=== PATIENT | female | born 1970 | race American Indian/Alaskan Native ===

== ENCOUNTER 2018-05-02 05:56 | Inpatient (IN) | payer MEDICAID, OTHER ==
[~2018-05-02 05:56] MED LIST: Lactated Ringers 1,000 ML IV SCH; Oxytocin/Normal Saline 30 UNIT/500 ML BAG IV SCH; Sodium Chloride 0.9% 10 ML Syringe FLUSH PRN
[2018-05-02] MEDS: Lactated Ringers 1,000 ML IV SCH ×4 (06:20→21:44)
[2018-05-02] MEDS ORDERED: Oxytocin/Normal Saline 60 UNIT/1,000 ML BAG ONE (07:15)
[2018-05-02] MEDS ORDERED: Citric Acid/Sodium Citrate Solution 30 ML Cup PO ONE (07:30)
[2018-05-02] MEDS ORDERED: Carboprost Tromethamine 250 MCG/1 ML Amp IM PRN (08:00)
[2018-05-02] MEDS ORDERED: Misoprostol 400 MCG (4 X 100 MCG TAB) ONE (08:00)
[2018-05-02] MEDS ORDERED: Methylergonovine 0.2 MG/1 ML Amp ONE (08:00)
[2018-05-02] MEDS ORDERED: Carboprost Tromethamine 250 MCG/1 ML Amp ONE (08:00)
[2018-05-02] MEDS ORDERED: Tranexamic Acid 1,000 MG in Sodium Chloride 0.9% 100 ML IV PRN (08:00)
[2018-05-02] MEDS: ceFAZolin 2 GM in Premix Bag 1 BAG IV ONE ×2 (08:00→21:17)
[2018-05-02] MEDS ORDERED: Acetaminophen 325 MG Tab PO PRN (09:04)
[2018-05-02] MEDS ORDERED: Naloxone 2 MG/2 ML Syringe IVPUSH PRN (09:04)
[2018-05-02] MEDS ORDERED: Zolpidem 5 MG Tab PO PRN (09:04)
[2018-05-02] MEDS ORDERED: Acetaminophen/oxyCODONE 325-5 MG Tab PO PRN (09:04)
[2018-05-02] MEDS ORDERED: diphenhydrAMINE 50 MG/ML SDV IVPUSH PRN (09:04)
[2018-05-02] MEDS ORDERED: ePHEDrine 50 MG/ML SDV IVPUSH PRN (09:04)
[2018-05-02] MEDS ORDERED: Morphine PF 30 MG/30 ML PCA Vial IV SCH (09:45)
[2018-05-02] MEDS: Simethicone 80 MG Tab.Chew PO SCH ×3 (14:22→21:45)
[2018-05-02] MEDS: Ondansetron 4 MG/2 ML SDV IV PRN ×2 (14:22→20:53)
[2018-05-02] MEDS: ceFAZolin 1 GM in Premix Bag 1 BAG IV SCH ×2 (14:25→21:45)
[2018-05-02] MEDS: Ketorolac 30 MG/ML SDV IVPUSH SCH ×2 (15:26→20:55)
--- NOTE | 2018-05-02 15:51 | OR ---
DATE: 05/02/2018 PREOPERATIVE DIAGNOSES: A 48-year-old , 8, para 7, at 39 and 1/7 weeks' gestation, elective repeat low-transverse section. Advanced maternal age. A positive blood type. Group B streptococcus positive. Rubella immune. High-risk . Anemia. Single umbilical artery. Smoker. History of macrosomia, shoulder dystocia, and hemorrhage requiring transfusion. POSTOPERATIVE DIAGNOSES: A 48-year-old , 8, now para 8, at 39-1/7 weeks' gestation, elective repeat low-transverse section. Advanced maternal age. A positive blood type. Group B streptococcus positive. Rubella immune. High-risk . Anemia. Single umbilical artery. Smoker. History of macrosomia, shoulder dystocia, and hemorrhage requiring transfusion. Viable male infant, weighing 7 pounds 8 ounces/3400 g with scores of 3 and 8. Confirmed single umbilical artery with succenturiate/bilobed placenta, sent to pathology. Unresponsive to spinal anesthesia x2, requiring general anesthesia. ASSISTANTS: 1. Jaime Hernandez MD. 2. Gillian Rose MS-2. PROCEDURE: Elective repeat low-transverse section with Pfannenstiel incision. ANESTHESIA: Spinal attempt x2 with subsequent general. ESTIMATED BLOOD LOSS: 500 mL. URINE OUTPUT: 200 mL without hematuria. FINDINGS: Viki is a delightful 48-year-old female, 8, para 7, who presented at 39 and 1/7 weeks' gestation for elective repeat section as scheduled. NST on arrival was reactive. Hemoglobin was 10.1. Platelet count was 300+. We proceeded to surgery as planned. She had no further questions and we had completed her consent and preop 2 days ago in the clinic. Please see her preop notes and episode for further details. The patient underwent a spinal anesthesia attempt x2, however, was still able to feel pinch testing after being prepped and draped in the usual sterile manner. A time-out had been performed. She underwent general anesthesia. A Pfannenstiel incision was made through her old incision as marked with a purple surgical marker. Carried this down to the subcutaneous tissue to the fascia which was divided transversely with the Metzenbaum scissors. The superior and inferior fascial flaps were developed with sharp and blunt dissection. The rectus was identified and divided in the midline. The peritoneum was identified and entered bluntly. Incision was opened until we had excellent visualization of the lower uterine segment. Extra large Alireza retractor was placed without difficulty. A stab incision was made into the lower uterine segment and extended bilaterally with blunt dissection. Amniotic fluid returned and was noted to be clear. The vertex was elevated up into the incision and delivered, followed by the remainder of the baby without difficulty. A large amount of amniotic fluid was noted in the baby's mouth and nares and this was suctioned out by me while Dr. Hernandez doubly clamped and cut the cord. The baby was carried off to the awaiting Nursery staff and was noted to have a strong cry with drying and suctioning on the table. However, once he arrived at the nursery table, did have the score of 3 at one minute and did require some positive pressure ventilation. His score at 5 minutes was noted to be 8. Weight was later found to be 7 pounds 8 ounces/3400 g. I did obtain a cord blood sample. The placenta was removed and later inspected and found to be essentially bilobed with an almost succenturiate lobe. It did appear to have a single umbilical artery and the placenta and cord were sent to Pathology for further evaluation and inspection. The uterus was wiped clean and dry and then incision edges were grasped with Wilson forceps. Uterine incision was closed with running locking #1 Vicryl with excellent results and hemostasis. Gutters were examined and found to be clean and dry and all clots had been removed. The incision was again examined and appeared hemostatic. The retractor was removed. The perineum was closed with a running Vicryl stitch. The subfascial space was irrigated. Then the fascia was closed with a running PDS loop suture with excellent results. The subcutaneous space was then irrigated. All bleeders were electrocauterized. The skin edges were brought together with john. Uterus was firm. The patient was receiving Pitocin per protocol. Her estimated blood loss was 500 mL and her catheter continued to drain clear urine throughout as noted. There were no intraoperative complications and she was awakened and transferred to recovery in good condition. We will follow routine postop and orders and cares for her with further management pending her clinical course and personal desires. [facility] /[id number]
[2018-05-02] MEDS ORDERED: Lactated Ringers 1,000 ML IV ONE (16:46)
[2018-05-02] MEDS ORDERED: Propofol 200 MG/20 ML SDV IV ONE (16:46)
[2018-05-02] MEDS ORDERED: Ketorolac 30 MG/ML SDV IVPUSH ONE (16:46)
[2018-05-02] MEDS ORDERED: fentaNYL 100 MCG/2 ML SDV ONE (16:46)
[2018-05-02] MEDS ORDERED: Oxytocin/Normal Saline 30 UNIT/500 ML BAG IV ONE (16:55)
[2018-05-02] MEDS: Docusate Sodium 100 MG Cap PO PRN (21:44)
[2018-05-03] MEDS: Ketorolac 30 MG/ML SDV IVPUSH SCH (03:10)
[2018-05-03] MEDS: Lactated Ringers 1,000 ML IV SCH (03:21)
[2018-05-03] MEDS: ceFAZolin 1 GM in Premix Bag 1 BAG IV SCH (06:20)
[2018-05-03] MEDS: Acetaminophen/oxyCODONE 325-5 MG Tab PO PRN ×4 (08:04→21:24)
[2018-05-03] MEDS: Docusate Sodium 100 MG Cap PO PRN ×2 (08:04→20:34)
[2018-05-03] MEDS: Simethicone 80 MG Tab.Chew PO SCH ×4 (08:04→20:33)
--- NOTE | 2018-05-03 12:06 | PCM.SN ---
- Free Text/Narrative Note: DOS: 05-03-18 Post-op #1 s/p ERLTCS Feels well. eating without nausea or vomiting anesthesia resolved Afebrile, VSS exam unremarkable. flow very light. not passing flatus yet Hgb 8.1, PLT WNL will get last dose of Ancef today, then january D/C IV encouraged to ambulate continue current cares and orders. all questiosn answered. likely home tomorrow or the next day, pending her clinical course and baby's clinical course in [facility] NICU. jie
[2018-05-03] MEDS: Ibuprofen 800 MG Tab PO PRN ×2 (12:07→20:34)
[2018-05-04] MEDS: Acetaminophen/oxyCODONE 325-5 MG Tab PO PRN ×6 (01:35→23:03)
[2018-05-04] MEDS: Ibuprofen 800 MG Tab PO PRN ×3 (04:14→21:16)
[2018-05-04] MEDS: Simethicone 80 MG Tab.Chew PO SCH ×4 (09:35→21:15)
[2018-05-04] MEDS: Docusate Sodium 100 MG Cap PO PRN ×2 (09:38→23:03)
--- NOTE | 2018-05-04 19:14 | PCM.SN ---
- Free Text/Narrative Note: DOS: 05-04-18 POD #2 Viki is feeling well today. eating OK, no nausea or vomiting. passing flatus, no BM yet. voiding ok. flow decreasing. cramps controlled. feels ready to be discharged in the morning. baby doing well in [facility] VSS afeb. HEENT neg no resp distress HR regular abd soft legs without significant edema. Impression: POD #2 recovering well Plan: Plan for Discharge tomorrow morning. CBC ordered for a.m. Pepcid ordered for heartburn. Iron supplementation ordered now that bowel function returning follow up in clinic for john out next Monday with me all questions answered. hmb
[2018-05-04] MEDS: Famotidine 20 MG Tab PO SCH (21:15)
--- NOTE | 2018-05-05 03:02 | PCM.PNPP ---
- General Info Date of Service: 05/05/18 (POD/PPD # 3 S/P Repeat LTC/S) Functional Status: Reports: Pain Controlled - Review of Systems General: Reports: No Symptoms HEENT: Reports: No Symptoms Pulmonary: Reports: No Symptoms Cardiovascular: Reports: No Symptoms Gastrointestinal: Reports: No Symptoms Genitourinary: Reports: No Symptoms Musculoskeletal: Reports: No Symptoms Skin: Reports: No Symptoms Neurological: Reports: No Symptoms Psychiatric: Reports: No Symptoms - General Info Date of Service: 05/05/18 (PPD/POD # 2 S/P Repeat LTC/S) - Patient Data Vital Signs - Most Recent: Last Vital Signs Temp 97.8 F 05/04/18 20:00 Pulse 91 05/04/18 20:00 Resp 16 05/04/18 20:00 BP 123/73 05/04/18 20:00 Pulse Ox 95 05/04/18 12:52 Weight - Most Recent: 225 lb I&O - Last 24 Hours: Intake & Output 05/04/18 05/04/18 05/05/18 14:59 22:59 06:59 Intake Total 340 Balance 340 Med Orders - Current: Current Medications Acetaminophen (Tylenol) 650 mg PO Q6H PRN PRN Reason: mild pain or fever Carboprost Tromethamine (Hemabate Ds) 250 mcg IM ASDIRECTED PRN PRN Reason: Excessive vaginal bleeding Diphenhydramine HCl (Benadryl) 25 mg IVPUSH Q6H PRN PRN Reason: Itching or Nausea Docusate Sodium (Colace) 100 mg PO Q12H PRN PRN Reason: Constipation Last Admin: 05/04/18 23:03 Dose: 100 mg Ephedrine Sulfate (Ephedrine Sulfate) 5 mg IVPUSH SEECOMMENT PRN PRN Reason: Other Famotidine (Pepcid) 20 mg PO BID MARCELINA Last Admin: 05/04/18 21:15 Dose: 20 mg Ferrous Sulfate (Ferrous Sulfate) 325 mg PO BIDMEALS MARCELINA Lactated Ringer's (Ringers, Lactated) 1,000 mls @ 125 mls/hr IV ASDIRECTED MARCELINA Last Admin: 05/03/18 03:21 Dose: 125 mls/hr Lactated Ringer's (Ringers, Lactated) 1,000 mls @ 500 mls/hr IV .BOLUS MARCELINA Last Admin: 05/02/18 19:00 Dose: 500 mls/hr Tranexamic Acid 1,000 mg/ (Sodium Chloride) 110 mls @ 660 mls/hr IV ONETIME PRN PRN Reason: Bleeding Oxytocin/Sodium Chloride (Pitocin In Ns 30 Unit/500 Ml) 30 unit in 500 mls @ 2 mls/hr IV TITRATE [facility]; Protocol Last Admin: 05/02/18 09:14 Dose: 2 munits/min, 125 mls/hr Ibuprofen (Motrin) 800 mg PO Q8H PRN PRN Reason: mild pain or fever Last Admin: 05/04/18 21:16 Dose: 800 mg Morphine Sulfate (Morphine [employer] 30 Mg In 30 Ml) 30 mg IV SEECOMMENT [facility]; Protocol Last Admin: 05/02/18 11:57 Dose: 30 mg Naloxone HCl (Narcan) 0.1 mg IVPUSH SEECOMMENT PRN PRN Reason: Respiratory Depression Ondansetron HCl (Zofran) 4 mg IV Q4H PRN PRN Reason: Nausea/Vomiting Last Admin: 05/02/18 20:53 Dose: 4 mg Oxycodone/Acetaminophen (Percocet 325-5 Mg) 1 tab PO Q4H PRN PRN Reason: Pain (moderate 4-6) Oxycodone/Acetaminophen (Percocet 325-5 Mg) 2 tab PO Q4H PRN PRN Reason: Pain (moderate 4-6) Last Admin: 05/04/18 23:03 Dose: 2 tab Simethicone (Simethicone) 160 mg PO QID [facility] Last Admin: 05/04/18 21:15 Dose: 160 mg Sodium Chloride (Saline Flush) 10 ml FLUSH ASDIRECTED PRN PRN Reason: Keep Vein Open Last Admin: 05/03/18 03:11 Dose: 10 ml Zolpidem Tartrate (Ambien) 5 mg PO BEDTIME PRN PRN Reason: Insomnia Discontinued Medications Carboprost Tromethamine (Hemabate Ds) Confirm Administered Dose 250 mcg .ROUTE .STK-MED ONE Stop: 05/02/18 08:01 Last Admin: 05/02/18 21:17 Dose: Not Given Citric Acid/Sodium Citrate (Bicitra Solution) 30 ml PO ONETIME ONE Stop: 05/02/18 07:31 Last Admin: 05/02/18 07:47 Dose: 30 ml Fentanyl (Sublimaze) 20 mcg .XX .STK-MED ONE Stop: 05/02/18 16:47 Cefazolin Sodium/Dextrose 2 gm (/ Premix) 50 mls @ 100 mls/hr IV ONETIME ONE Stop: 05/02/18 07:59 Last Admin: 05/02/18 21:17 Dose: Not Given Oxytocin/Sodium Chloride (Pitocin In Ns 30 Unit/500 Ml) Confirm Administered Dose 60 unit in 1,000 mls @ as directed .ROUTE .STK-MED ONE Stop: 05/02/18 07:16 Cefazolin Sodium/Dextrose 1 gm (/ Premix) 50 mls @ 100 mls/hr IV Q8HR MARCELINA Stop: 05/03/18 06:29 Last Admin: 05/03/18 06:20 Dose: 100 mls/hr Lactated Ringer's (Ringers, Lactated) 1,000 mls @ as directed IV .STK-MED ONE Stop: 05/02/18 16:47 Oxytocin/Sodium Chloride (Pitocin In Ns 30 Unit/500 Ml) 30 unit in 500 mls @ as directed IV .STK-MED ONE Stop: 05/02/18 16:56 Ketorolac Tromethamine (Toradol) 15 mg IVPUSH Q6H MARCELINA Stop: 05/03/18 03:01 Last Admin: 05/03/18 03:10 Dose: 15 mg Ketorolac Tromethamine (Toradol) 30 mg IVPUSH .STK-MED ONE Stop: 05/02/18 16:47 Lidocaine HCl (Xylocaine-Mpf 1%) 3 ml INJECT .STK-MED ONE Stop: 05/02/18 16:47 Methylergonovine Maleate (Methergine) Confirm Administered Dose 0.2 mg .ROUTE .STK-MED ONE Stop: 05/02/18 08:01 Last Admin: 05/02/18 21:17 Dose: Not Given Misoprostol (Cytotec) Confirm Administered Dose 800 mcg .ROUTE .STK-MED ONE Stop: 05/02/18 08:01 Last Admin: 05/02/18 21:17 Dose: Not Given Propofol (Diprivan 20 Ml) 630 mg IV .STK-MED ONE Stop: 05/02/18 16:47 - Interaction Support Person: - Recovery Exam Fundal Tone: Firm Fundal Level: 3 Fingerbreadths Below Umbilicus Fundal Placement: Midline Lochia Amount: Small Lochia Color: Rubra/Red Perineum Description: Intact, Minimal Bruising/Swelling Episiotomy/Laceration: None Bladder Status: Nonpalpable, Voiding Urinary Elimination: Indwelling Catheter - Exam General: Alert, Oriented, Cooperative, No Acute Distress HEENT: Pupils Equal, Pupils Reactive, Mucous Membr. Moist/[place] Neck: Supple Lungs: Clear to Auscultation, Normal Respiratory Effort Cardiovascular: Regular Rate, Regular Rhythm, No Murmurs GI/Abdominal Exam: Normal Bowel Sounds, Soft, Non-Tender, No Organomegaly, No Distention Extremities: Normal Inspection, Normal Range of Motion, Non-Tender, No Pedal Edema Skin: Warm, Dry, Intact Wound/Incisions: Healing Well, Dressing Dry and Intact, No Drainage Neurological: No New Focal Deficit Psy/Mental Status: Alert, Normal Affect, Normal Mood - Problem List Review Problem List Initiated/Reviewed/Updated: Yes - My Orders Last 24 Hours: My Active Orders 05/05/18 02:53 Ready for Discharge [RC] PER UNIT ROUTINE - Assessment Assessment:: PPD/POD # 3 S/P Repeat LTC/S Advanced maternal age Group B strep positive 2 Vessel umbilical cord Chronic anemia of Acute anemia secondary to blood loss - Plan Plan:: Discharge to home Follow-up with Dr. Bowman on 05/09/2018 for staple removal and wound check. Percocet and Motrin for pain control All questions answered.
[2018-05-05] MEDS: Acetaminophen/oxyCODONE 325-5 MG Tab PO PRN ×2 (03:37→08:26)
[2018-05-05] MEDS ORDERED: Ferrous Sulfate 325 MG Tab PO SCH (08:00)
[2018-05-05] MEDS: Famotidine 20 MG Tab PO SCH (08:25)
[2018-05-05] MEDS: Docusate Sodium 100 MG Cap PO PRN (08:25)
[2018-05-05] MEDS: Ibuprofen 800 MG Tab PO PRN (08:25)
[2018-05-05] MEDS: Simethicone 80 MG Tab.Chew PO SCH (08:26)
[2018-05-05] MEDS ORDERED: HYDROmorphone/Normal Saline 15 MG/30 ML PCA IV SCH (10:45)
--- NOTE | 2018-05-06 03:00 | DISCH ---
INDICATION FOR ADMISSION: Ms. Mejía is a 48-year-old 8, para 7-0-0-7, female at 39 and 1/7 weeks' gestation, who reported to Labor and Delivery for elective repeat low transverse section. She had a high- risk secondary to advanced maternal age, positive group B strep vaginal culture. She had a previous with shoulder dystocia along with history of low transverse section in the past. She tolerated her procedure quite well. She delivered a 7 pound 8 ounce male with scores of 3 at 1 minute, 8 at 5 minutes. The infant went to the nursery. The patient tolerated the rest of her quite well. She went from the operating room to the OB floor. She tolerated the rest of her hospital stay quite well. She is afebrile. Vital signs are stable. She tolerated her diet well and ambulated quite well. Her infant did have to be sent to the [facility]. The patient was anemic. Her hemoglobin dropped to 8.1 on postop day #1 and was up a little bit on postop day #3 to 8.3. She had no symptoms. She tolerated the rest of her hospital stay quite well. She was afebrile. Vital signs are stable. She tolerated her diet well and ambulated quite well. Her incision did well with no erythema or drainage noted. She was discharged home on postop day #3. LABORATORY AND DIAGNOSTIC STUDIES: On 05/02/2018, WBC 9.7, hemoglobin 10.1, hematocrit 31.7. On 05/03/2018, WBC 10.7, hemoglobin 8.1, hematocrit 26.0, platelet count 288,000. On 05/05/2018, WBC 9.0, hemoglobin 8.3, hematocrit 26.5, platelet count 322,000. DISCHARGE INSTRUCTIONS: 1. Discharged to home. 2. Follow up with Dr. Bowman on 05/09/2018 for staple removal. 3. No douching, tampons, or intercourse for 6 weeks. 4. Discharge instructions including activity, followup, medications, diet, and wound care were discussed with the patient. She understands these and is willing to comply with these. 5. Ibuprofen 800 mg one tablet t.i.d. p.r.n. for pain. 6. Percocet 5/325 mg one tablet t.i.d. p.r.n. for pain. DISCHARGE DIAGNOSES: 1. A 39 and 1/7 weeks' intrauterine . 2. Advanced maternal age. 3. Group B streptococcus vaginal culture positive. 4. Anemia, chronic in . 5. Two-vessel umbilical cord. 6. Nicotine addiction. 7. Previous section. 8. History of macrosomia in previous with shoulder dystocia. 9. History of hemorrhage requiring transfusion in the past. 10.Repeat low transverse section via Pfannenstiel skin incision. 11.Delivery of a viable male , weighing 7 pounds 8 ounces with scores of 3 at 1 minute, 8 at 5 minutes. 12.Spinal anesthesia with Duramorph. 13.Infant was transferred to the NICU at [facility]. [facility] /[id number]
== END 2018-05-05 10:40 | disposition home or self-care (01) | DRG 766 ==
LOC: DL.OB 05:56 → OBSVTOIN 08:32
PROVIDERS: ADMIT Family Medicine; ATTEND Family Medicine
PROC: 10D00Z1 Extraction of Products of Conception, Low, Open Approach (ICD-10-PCS; principal; 2018-05-02)
DX: O34.211 Maternal care for low transverse scar from previous cesarean delivery (principal); Z3A.39 39 weeks gestation of pregnancy; Z37.0 Single live birth; O99.824 Streptococcus B carrier state complicating childbirth; O99.02 Anemia complicating childbirth; D64.9 Anemia, unspecified; O99.334 Smoking (tobacco) complicating childbirth; F17.210 Nicotine dependence, cigarettes, uncomplicated; O35.8XX0 Maternal care for other (suspected) fetal abnormality and damage, not applicable or unspecified
CPT/HCPCS: 01961; 36415; 59025; 82947; 85027; 86850; 86900; 86901; A9270-GY; J0690; J1885; J2274; J2405; J2590; J2704; J3010; J7050; J7120

== ENCOUNTER 2018-09-28 15:53 | Emergency (ER) | payer SELFPAY ==
[2018-09-28] MEDS ORDERED: Acetaminophen/HYDROcodone 325-10 MG Tab PO ONE ×2 (15:54→18:57)
--- NOTE | 2018-09-28 18:57 | EDM.PDOC ---
Scribed by Pamela Rodriguez 09/28/18 1837 for Bernardo Romeo MD <Bernardo Romeo - Last Filed: 09/28/18 18:54> ED HPI GENERAL MEDICAL PROBLEM - General Chief Complaint: Upper Extremity Injury/Pain Stated Complaint: LEFT ELBOW PAIN Time Seen by Provider: 09/28/18 18:05 Source of Information: Reports: Patient, RN, RN Notes Reviewed History Limitations: Reports: No Limitations - History of Present Illness INITIAL COMMENTS - FREE TEXT/NARRATIVE: Patient presents to ER with complaint that she tripped and fell on her left elbow. She was carrying her baby and did not want to injure the baby, so she did not protect her arm and landed on it. Denies any other injury. Onset: Today Duration: Getting Worse Location: Reports: Upper Extremity, Left Quality: Reports: Ache Severity: Severe Improves with: Reports: None Worsens with: Reports: None Associated Symptoms: Reports: No Other Symptoms Left Elbow Pain Score (Numeric/FACES): 10 - Related Data Allergies Allergy/AdvReac Type Severity Reaction Status Date / Time No Known Allergies Allergy Verified 05/02/18 05:01 Past Medical History [employer] History: Reports: Psychiatric History: Reports: Depression, Suicide Attempt Hematologic History: Reports: Anemia - Past Surgical History GI Surgical History: Reports: Colonoscopy Female Surgical History: Reports: Section Social & Family History - Family History Family Medical History: Noncontributory - Caffeine Use Caffeine Use: Reports: Coffee - Living Situation & Occupation Living situation: Reports: with Family Review of Systems - Review of Systems Review Of Systems: ROS reveals no pertinent complaints other than HPI. ED EXAM, GENERAL - Physical Exam Exam: See Below Exam Limited By: No Limitations General Appearance: Alert, WD/WN, No Apparent Distress Nose: Normal Inspection Throat/Mouth: Normal Inspection, Normal Voice, No Airway Compromise Head: Atraumatic, Normocephalic Neck: Normal Inspection Respiratory/Chest: No Respiratory Distress, Lungs Clear, Normal Breath Sounds, No Accessory Muscle Use, Chest Non-Tender Cardiovascular: Normal Peripheral Pulses, Regular Rate, Rhythm Peripheral Pulses: 3+: Radial (L), Radial (R) Back Exam: Normal Inspection Extremities: Normal Capillary Refill, Arm Pain (left), Limited Range of Motion ( left elbow with soft tissue swelling, and acute tenderness to palpation) Neurological: Alert, Oriented, CN II-XII Intact, Normal Cognition, Normal Gait, No Motor/Sensory Deficits Psychiatric: Normal Affect, Normal Mood Skin Exam: Warm, Dry, Intact, Normal Color, No Rash Course - Vital Signs Last Recorded V/S: Last Vital Signs Temp 36.8 C 09/28/18 18:17 Pulse 82 09/28/18 18:17 Resp 16 09/28/18 18:17 BP 175/88 H 09/28/18 18:17 Pulse Ox 98 09/28/18 18:17 - Orders/Labs/Meds Meds: Medications Discontinued Medications Generic Name Dose Route Start Last Admin Trade Name Sy PRN Reason Stop Dose Admin Hydrocodone Bitart/Acetaminophen 1 tab 09/28/18 18:57 09/28/18 19:01 [place] 325-10 Mg PO 09/28/18 18:58 1 tab ONETIME ONE Administration - Re-Assessments/Exams Free Text/Narrative Re-Assessment/Exam: 09/28/18 19:00 Care of pt transferred to Félix FLORES at 1900HR shift change. Departure - Departure Disposition: Home, Self-Care 01 Condition: Good Clinical Impression: Closed fracture of head of left radius - Discharge Information Instructions: How to Use a Sling, [id number], Radial Head Fracture, Easy-to- Read Forms: ED Department Discharge Care Plan Goals: The patient was advised of the examination, x-ray, CT and consult results. The patient was placed in a posterior splint with her elbow immobilized with a shoulder immobilizer while in the ED. The patient was advised to call [facility] on Monday Morning to see one of the trauma media relations specialist (Dr. Richards or Dr. Baez) on either Monday or Monday. The patient was given an oral dose of [place] (10/325) while in the ED. The patient was discharged with [place] ( 10/325) #2 to take 1 by mouth every 6 hours as needed for pain. The patient was also give a script for [place] (10/325) #12 to take 1 by mouth every 6 hours as needed for pain. If the patient has any additional symptoms or concerns, the patient should either visit her primary care facility or return to the emergency department. <Félix Carmona - Last Filed: 09/28/18 20:25> ED TRAUMA EXTREMITY PROCEDURES - Splinting Left Upper Extremity Splint Site: Left elbow Pre-Procedure NV Status: Normal Post-Procedure NV Status: Normal Splint Material: Fiberglass Splint Design: Posterior Applied & Form Fitted By: Provider Provider Post-Splint Application NV Check: NV Status Normal, Good Position Complications: No Course - Orders/Labs/Meds Meds: Medications Discontinued Medications Generic Name Dose Route Start Last Admin Trade Name Sy PRN Reason Stop Dose Admin Hydrocodone Bitart/Acetaminophen 1 tab 09/28/18 18:57 09/28/18 19:01 [place] 325-10 Mg PO 09/28/18 18:58 1 tab ONETIME ONE Administration - Re-Assessments/Exams Free Text/Narrative Re-Assessment/Exam: 09/28/18 18:58 Patient care was taken over at shift change. Records were reviewed and I agree with previous findings. The patient reports her pain level is currently an 8/10 , but gets much worse with any movement of her left arm. 09/28/18 19:56 A consult call was made to Dr. Stoll (Orthopedics with [facility] in [place]) . Dr. Stoll advised to put on a posterior splint. The patient should follow- up with one of the Trauma Orthopedic specialists on Monday or Monday of next week. Departure - Departure Time of Disposition: 19:57 Condition: Fair - Discharge Information *PRESCRIPTION DRUG MONITORING PROGRAM REVIEWED*: Not Applicable *COPY OF PRESCRIPTION DRUG MONITORING REPORT IN PATIENT BARNEY: Not Applicable I have read and agree with the documentation that has been completed regarding this visit. By signing this record, I attest that the documentation was completed in my physical presence and is an accurate record of the encounter.
[2018-09-28] MEDS ORDERED: Acetaminophen/HYDROcodone 325-10 MG Tab ONE (20:39)
== END 2018-09-28 20:46 | disposition home or self-care (01) ==
LOC: DL.ED 15:53
DX: S52.122A Displaced fracture of head of left radius, initial encounter for closed fracture (principal); W01.0XXA Fall on same level from slipping, tripping and stumbling without subsequent striking against object, initial encounter
CPT/HCPCS: 29105; 73080; 73200; 99283; A9270

== ENCOUNTER 2024-09-10 09:59 | Emergency (ER) | payer MEDICAID ==
[2024-09-10] MEDS: Aspirin 81 MG Tab.Chew PO ONE (10:21)
[2024-09-10] MEDS: Sodium Chloride 0.9% 10 ML Syringe FLUSH PRN (10:22)
[2024-09-10 10:32] LABS: BASOPHILS PERCENT AUTO 0.6 % (0.0-1.0); EOSINOPHILS PERCENT AUTO 6.4 % (1.0-3.0); HEMOGLOBIN 13.5 g/dL (12.0-16.0); LYMPHOCYTES PERCENT AUTO 19.6 % (20.5-50.1); MEAN CORPUSCULAR HEMOGLOBIN 29.3 pg (27.0-34.0); MEAN CORPUSCULAR HGB CONC 32.9 g/dL (33.0-35.0); MEAN CORPUSCULAR VOLUME 89.1 fL (80-100); MONOCYTES PERCENT AUTO 7.2 % (2-8); NEUTROPHILS PERCENT AUTO 66.2 % (42.2-75.2); PLATELET COUNT,PLT 314 10^3/uL (150-450); WHITE BLOOD CELL COUNT,WBC 11.4 10^3/uL (5.0-10.0)
[2024-09-10 10:45] LABS: A/G RATIO 0.9; ALANINE AMINOTRANSFERASE,ALT 21 U/L (14-59); ALBUMIN 3.8 g/dL (3.4-5.0); ALKALINE PHOSPHATASE 105 U/L (46-116); ANION GAP 11.8 mEq/L (7-13); ASPARTATE AMNIOTRANSFERASE,AST 14 U/L (15-37); BILIRUBIN TOTAL 0.3 mg/dL (0.2-1.0); BLOOD UREA NITROGEN,BUN 12 mg/dL (7-18); CALCIUM 8.5 mg/dL (8.5-10.1); CARBON DIOXIDE,CO2 29 mmol/L (21-32); CHLORIDE,CL 104 mmol/L (98-107); CREATININE 0.86 mg/dL (0.55-1.02); EST CRCL DRUG DOSING (CG) 68.86 mL/min; ESTIMATED GFR 81 mL/min (>=60); GLUCOSE RANDOM 116 mg/dL (70-99); LIPASE 83 U/L (16-77); POTASSIUM,K 3.8 mmol/L (3.5-5.1); PROTEIN TOTAL,TP 7.8 g/dL (6.4-8.2); SODIUM,NA 141 mmol/L (136-145)
[2024-09-10 10:46] LABS: HCG QUALITATIVE,SERUM NEGATIVE (NEGATIVE)
[2024-09-10] MEDS ORDERED: Naloxone 2 MG/2 ML Syringe IVPUSH PRN (10:54)
[2024-09-10 10:55] LABS: B-TYPE NATRIURETIC PEPTIDE,BNP 14 pg/ml (0-100)
[2024-09-10 11:03] LABS: AMPHETAMINES,URINE NEGATIVE (NEGATIVE); BARBITURATES,URINE NEGATIVE (NEGATIVE); BENZODIAZEPINE,URINE NEGATIVE (NEGATIVE); MDMA (ECSTASY), URINE NEGATIVE (NEGATIVE); METHADONE,URINE NEGATIVE (NEGATIVE); METHAMPHETAMINES,URINE NEGATIVE (NEGATIVE); OPIATES,URINE NEGATIVE (NEGATIVE); OXYCODONE,URINE NEGATIVE (NEGATIVE); PHENCYCLIDINE,URINE NEGATIVE (NEGATIVE); TCA,URINE NEGATIVE (NEGATIVE)
[2024-09-10] MEDS: Iopamidol 612 MG/ML 100 ML Bottle IVPUSH ONE (11:57)
[2024-09-10] MEDS: GI Cocktail Oral Solution 30 ML PO ONE (12:02)
[2024-09-10] MEDS: Famotidine 20 MG Tab PO ONE (12:50)
[2024-09-10] MEDS: Morphine 2 MG/ML SYRINGE IVPUSH ONE (13:41)
== END 2024-09-10 14:00 | disposition home or self-care (01) ==
LOC: DL.ED 09:59
DX: R07.89 Other chest pain (principal); F17.210 Nicotine dependence, cigarettes, uncomplicated
CPT/HCPCS: 36415; 71046; 74177; 76705; 80053; 80305; 83690; 83735; 83880; 84484; 84703; 85025; 85379; 93005; 99285; A9270; Q9967